=== PATIENT | female | born 1985 | race Caucasian/White ===

== ENCOUNTER 2017-01-13 19:48 | Inpatient (IN) | payer OTHER ==
[~2017-01-13] VITALS: Ht 160 cm; Wt 87.6 kg
[~2017-01-13 19:48] MED LIST: HYDR-3498 PO; IBUP-1542 PO; NITR-58 PO; ONDA4TAB8 PO; PHEN-538 PO
[2017-01-13 20:12] VITALS: BP 125/81; PULSE 89; RESP 18
[2017-01-13] MEDS ORDERED: FERR134T PO (20:16)
[2017-01-13] MEDS ORDERED: PRENAT PO (20:16)
[2017-01-13 20:38] LABS: ADD UMIC YES; UR ASCORBIC ACID NEGATIVE (NEGATIVE); UR BACTERIA FEW /HPF (NONE SEEN); UR BILIRUBIN (Dip) NEGATIVE (NEGATIVE); UR BLOOD (Dip) NEGATIVE (NEGATIVE); UR CLARITY SLIGHTLY CLOUDY (CLEAR); UR COLOR YELLOW (YELLOW); UR GLUCOSE (Dip) NEGATIVE (NEGATIVE); UR KETONES (Dip) NEGATIVE (NEGATIVE); UR LEUKOCYTE ESTERASE (Dip) 2+ Leu/ul (NEGATIVE); UR NITRITE (Dip) NEGATIVE (NEGATIVE); UR RBC 1 /HPF (0-5); UR SQUAMOUS EPITHELIAL CELL MODERATE /HPF (FEW); UR TOTAL PROTEIN (Dip) NEGATIVE (NEGATIVE); UR UROBILINOGEN (Dip) NEGATIVE (NEGATIVE)
[2017-01-13] MEDS ORDERED: BUTORPHANOL 2 MG INJ IV PRN (21:00)
[2017-01-13] MEDS ORDERED: OXYTOCIN 30 UNITS/LR 500 ML IV PRN (21:00)
[2017-01-13] MEDS ORDERED: CARBOPROST 250 MCG INJ IM PRN (21:00)
[2017-01-13] MEDS ORDERED: METHYLERGONOVINE 0.2 MG INJ IM PRN (21:00)
[2017-01-13] MEDS ORDERED: MISOPROSTOL 200 MCG TAB PR PRN (21:00)
[2017-01-13] MEDS ORDERED: IBUPROFEN 600 MG TAB PO PRN (21:00)
[2017-01-13] MEDS ORDERED: LIDOCAINE 1% (MPF) 30 ML INJ INJ PRN (21:00)
[2017-01-13] MEDS ORDERED: OXYTOCIN 30 UNITS/LR 500 ML IV SCH ×2 (21:00)
[2017-01-13] MEDS: LACTATED RINGER'S 1,000 ML IV SCH (21:25)
--- NOTE | 2017-01-13 21:59 | TRIAGE ---
OB Triage Datetime Report Generated by CPN: 01/13/2017 21:59 Datetime: 01/13/2017 21:44 Assessment Type: Admission Assessment Vaginal Bleeding: None Maternal Assessment Level of Consciousness: Fully Conscious DTR's/Clonus: DTRs 2+; No Clonus Headache: Unilateral; Frontal Blurred Vision: No Respiratory Effort: Unlabored; Regular Rhythm; Equal Expansion Breath Sounds, Left: Clear and Equal Breath Sounds, Right: Clear and Equal Nausea/Vomiting: Denies RUQ Epigastric Pain: Denies Facial Edema: None Fall Risk Assessment History of Falling: (0) No Secondary Diagnosis: (0) No Ambulatory Aid: (0) Bedrest/Nurse Assist Gait: (0) Normal/Bedrest/Immobile Mental Status: (0) Oriented to Own Ability Pain Assessment Pain Scale: 7 Pain Presence: Intermittent Pain Type: Contraction Pain Location: Abdomen; Back Datetime: 01/13/2017 20:48 Stage of : OB Triage Datetime: 01/13/2017 20:44 Stage of : OB Triage Labor Evaluation Frequency: 3-8 Monitor Mode: External Duration (sec)2399: 60-100 Quality: Moderate Pattern: Normal: <= 5 Contractions in 10 Minutes Resting Tone [place]: Relaxed Heart Rate FHR Baseline Rate: 140 Monitor Mode: External US FHR Baseline Changes: No Baseline Change Variability: Moderate 6-25 bpm Accelerations: 15X15 Decelerations: None Category: Category I Vaginal Exam Dilatation (cms): 2.0 Effacement (%): 60 Station: 0 Exam By: Dr Qureshi Membrane Status: Intact Vaginal Bleeding: None Cervix, Consistency: Soft Cervix, Position: Posterior Presentation 'A': Cephalic Datetime: 01/13/2017 20:03 Time of Arrival: 01/13/2017 19:45 EGA: 39.2 Arrived By: Wheelchair Arrived From: Home Chief Complaint: w/ c/o ucs and sharp pelvic pain, mild nausea, PRICE and cough Movement: Present Contractions: Regular Time Contractions Began: 01/13/2017 18:39 Contractions: Q5-7 Rupture of Membranes: Denies Vaginal Bleeding: None Vaginal Discharge: Denies Recent Sexual Intercouse: Denies Abdominal Trauma: Not Applicable Patient Complaints: Contractions; Headache; Nausea Time Provider Notified: 01/13/2017 20:48 Provider Notified: Dr Burris Initial Plan: EFM, SVE Datetime: 01/13/2017 19:54 Stage of : OB Triage Maternal Assessment Level of Consciousness: Fully Conscious DTR's/Clonus: DTRs 2+; No Clonus Headache: Generalized Blurred Vision: No Respiratory Effort: Unlabored Nausea/Vomiting: Present RUQ Epigastric Pain: Denies Facial Edema: None Labor Evaluation Frequency: placed Monitor Mode: External Resting Tone [place]: Relaxed Monitor Mode: External US Comments: FHT 145 Pain Assessment Pain Scale: 7 Pain Presence: Intermittent Pain Type: Contraction; Stabbing Pain Location: Abdomen; Perineum
[2017-01-13 22:01] LABS: ADD SCAN DIFF NO
[2017-01-13 22:04] LABS: BASOPHILS % 0.3 % (0.0-2.0); EOSINOPHILS # 0.1 10^3/ul (0.0-0.5); EOSINOPHILS % 0.6 % (0.0-7.0); HEMATOCRIT 32.9 % (37.0-47.0); HEMOGLOBIN 11.3 g/dl (12.0-16.0); LYMPHOCYTES # 2.6 10^3/ul (0.8-2.9); LYMPHOCYTES % 27.5 % (15.0-51.0); MEAN CORPUSCULAR HEMOGLOBIN 29.2 pg (29.0-33.0); MEAN CORPUSCULAR HGB CONC 34.3 g/dl (32.0-37.0); MEAN PLATELET VOLUME 10.8 fl (7.4-10.4); MONOCYTE # 0.6 10^3/ul (0.3-0.9); MONOCYTES % 6.6 % (0.0-11.0); NEUTROPHIL # 6.2 10^3/ul (1.6-7.5); NEUTROPHILS % 64.7 % (39.0-77.0); PLATELET COUNT 245 10^3/UL (140-415); RED BLOOD COUNT 3.87 10^6/ul (4.20-5.40); RED CELL DISTRIBUTION WIDTH 13.7 % (11.5-14.5); WHITE BLOOD COUNT 9.6 10^3/ul (4.8-10.8)
[2017-01-13 22:22] LABS: INR 0.98
[2017-01-13 22:23] LABS: PARTIAL THROMBOPLASTIN TIME 25.6 Sec (25.0-35.0)
[2017-01-13 22:27] LABS: ALANINE AMINOTRANSFERASE 25 IU/L (13-69); ALBUMIN 3.4 g/dl (3.3-4.9); ALBUMIN/GLOBULIN RATIO 0.97; ALKALINE PHOSPHATASE 180 IU/L (42-121); ANION GAP 18 (8-16); ASPARTATE AMINO TRANSFERASE 20 IU/L (15-46); BILIRUBIN,INDIRECT 0.1 mg/dl (0-1.1); BILIRUBIN,TOTAL 0.1 mg/dl (0.2-1.3); BLOOD UREA NITROGEN 5 mg/dl (7-20); CALCIUM 9.4 mg/dl (8.4-10.2); CARBON DIOXIDE 19 mmol/L (21-31); CHLORIDE 106 mmol/L (97-110); CREATININE 0.55 mg/dl (0.44-1.00); GLUCOSE 84 mg/dl (70-220); POTASSIUM 3.9 mmol/L (3.5-5.1); SODIUM 139 mmol/L (135-144); TOTAL PROTEIN 6.9 g/dl (6.1-8.1)
[2017-01-13] MEDS ORDERED: LACTATED RINGER'S 1,000 ML IV PRN (23:00)
[2017-01-13] MEDS: OXYTOCIN 30 UNITS/LR 500 ML IV SCH (23:10)
[2017-01-14] MEDS: LACTATED RINGER'S 1,000 ML IV SCH ×3 (00:12→11:22)
[2017-01-14] MEDS ORDERED: AL HYDROX/MG HYDROX/SIMETH 30 ML CUP PO ONE (01:00)
--- NOTE | 2017-01-14 05:27 | HP ---
Date/Time of Note Date/Time of Note DATE: 01/14/17 TIME: 05:19 OB - History Hx of Present Free Text/Dictation Late Entry Note- Patient seen on 01/13/17: 31 Year-old with SIUP at 39 2/7 weeks presents with a chief complaint of ucs. She has been receiving her care with Dr. Burris. She states good movement. She denies nausea, vomiting, shortness of breath, chest pain, and abdominal pain between contractions, headache, visual changes, vaginal bleeding or LOF. Chief Complaint: ucs Estimated Due Date: Jan 18, 2017 : 3 Para: 1 Spontaneous : 1 Therapeutic : 0 Care: Good Care Ultrasounds: Normal mid trimester US Obstetrical Complications: None Medical Complications: None Past Family/Social History * Past Medical, Surgical, Family and Obstetric Histories reviewed from chart. GBS Status: Negative OB Admission Exam Vital Signs Vital Signs Vital Signs Date Time Temp Pulse Resp B/P Pulse Ox O2 Delivery O2 Flow Rate FiO2 01/13/17 20:12 97.4 89 18 125/81 Room Air Physical Exam HEENT: WNL Heart: Rhythm Normal Lungs: Clear Abdomen: WNL Extremities: Normal Cervical Dilatation: 2cm Effacement: Other (60%) Station: -2 Membranes: Intact Heart Rate: 140's Accelerations: Accelerations Present Decelerations: No Decelerations Varibility: Moderate Contractions on Admission: < 5 Minutes Apart Intensity: Firm Last 72 hours Lab Results CBC & BMP 01/13/17 21:20 Liver Function Test 01/13/17 21:20 Alanine Aminotransferase (ALT/SGPT) 25 Albumin 3.4 Alkaline Phosphatase 180 H Aspartate Amino Transf (AST/SGOT) 20 Direct Bilirubin 0.00 Total Protein 6.9 OB Assessment/Plan Other plan: 31 Year-old with SIUP at 39 2/7 weeks in labor. - FHR: No sign of metabolic acidosis- Category I - Continious EFM, toco - CBC, blood type and screen - Analgesia options with R/B/A discussed in detail with patient - Epidural per patient request - GBS negative - Obtain PNL from office on 01/14/17 - Please see the orders Admission, procedures, expectations, risks and possible complications have been discussed in detail with the patient. Risk of vaginal delivery including but not limited to bleeding, infection, cervical laceration, placental retention, injury to fetus, blood transfusion, blood transfusion related infection, risk of anesthesia, adhesion, cervical laceration, episiotomy/laceration, possible delivery with risk of bleeding, infection, injury to other organs ( bowel, bladder, ureter, vessels, nerves), injury to fetus, blood transfusion, blood transfusion related infection, risk of anesthesia, scar and hernia formation, needs for future , removal of uterus or any other indicated surgery discussed with the patient. She expressed understanding and repeats the risks. All of her questions were answered; all appropriate consents will be signed. PHYSICIAN'S VERIFICATION OF INFORMED CONSENT: The patient was counseled regarding the procedure, its indications, risks, potential complications and alternatives and any questions were answered. Consent was obtained. PLANNED PROCEDURE/TREATMENT: Vaginal delivery with possible vacuum/forceps delivery episiotomy, repair of laceration possible delivery PHYSICIAN'S VERIFICATION OF INFORMED CONSENT FOR BLOOD TRANSFUSION: There is a reasonable possibility that blood transfusion will be necessary as a result of the patient's procedure. I have discussed the following with the patient/patient's legal small business representative: An explanation of the benefits and risks of the transfusion of blood or blood products and the possible alternatives. Al questions have been answered to the patient's/patients legal representatives satisfaction. INFORMED CONSENT: The patient has been informed of: - The nature of the proposed care, treatment, services, medic- Potential benefits, risks or side effects, including potential problems related to recuperation. - The likelihood of achieving care treatment and service goals. - Reasonable alternatives to the proposed care, treatment and service. - The relevant risks, benefits and side effects related to alternatives, including the possible results of not receiving care, treatment and services. - When indicated, any limitations on the confidentiality of information learned from or about the patient. - If appropriate, the risks, benefits and alternatives of the drugs to be used for sedation/analgesia including moderate sedation. JOSE ANGEL RENTERIA Jan 14, 2017 05:27
[2017-01-14] MEDS ORDERED: FENTAnyl 2MCG/ML-ROPIV 0.2% 100 ML ONE (07:19)
--- NOTE | 2017-01-14 07:32 | HP ---
Date/Time of Note Date/Time of Note DATE: 01/14/17 TIME: 07:28 OB - History Hx of Present Free Text/Dictation 31 YO with IUP at 39 weeks who reported to L&D with headache and borderline BP and early labor. she is augmented with Pitocin. PIH labs are normal. Care: Good Care Ultrasounds: Normal mid trimester US Obstetrical Complications: None Medical Complications: None Past Family/Social History * Past Medical, Surgical, Family and Obstetric Histories reviewed from chart. OB Admission Exam Vital Signs Vital Signs Vital Signs Date Time Temp Pulse Resp B/P Pulse Ox O2 Delivery O2 Flow Rate FiO2 01/13/17 20:12 97.4 89 18 125/81 Room Air Physical Exam HEENT: WNL Heart: Rhythm Normal Lungs: Clear, Equal Abdomen: WNL Extremities: Normal Reflexes: Normal Cervical Dilatation: 4cm Effacement: 75% Membranes: Ruptured Last 72 hours Lab Results CBC & BMP 01/13/17 21:20 Liver Function Test 01/13/17 21:20 Alanine Aminotransferase (ALT/SGPT) 25 Albumin 3.4 Alkaline Phosphatase 180 H Aspartate Amino Transf (AST/SGOT) 20 Direct Bilirubin 0.00 Total Protein 6.9 OB Assessment/Plan Other Assessment: Labor EFW is 8 Lb Induction Method: other (AROM: Clear. Pitocin. ) ZACKARY BARAHONA MD Jan 14, 2017 07:32
[2017-01-14] MEDS: ACETAMINOPHEN 500 MG TAB PO PRN ×2 (07:55→14:57)
[2017-01-14] MEDS ORDERED: DIPHENHYDRAMINE 50 MG INJ IV PRN ×2 (10:30→14:30)
[2017-01-14] MEDS ORDERED: FENTAnyl 2MCG/ML-ROPIV 0.2% 100 ML BAG EPI SCH (10:30)
[2017-01-14] MEDS ORDERED: ONDANSETRON 4 MG INJ IV PRN ×2 (10:30→14:30)
[2017-01-14] MEDS ORDERED: NALOXONE (0.4 MG/ML) INJ IV PRN (10:30)
[2017-01-14] MEDS ORDERED: HYDROmorphONE 1 MG/ML SYG IV PRN ×2 (10:30)
[2017-01-14] MEDS ORDERED: LACTATED RINGER'S 1,000 ML IV* SCH (14:10)
--- NOTE | 2017-01-14 14:14 | LDN ---
Date/Time of Note Date/Time of Note DATE: 01/14/17 TIME: 14:11 Delivery Summary s/p of viable male with 1st degree vaginal laceration repaired with 2-0 chromic in normal fashion. EBL 300. placenta delivered intact and spontaneously. Placenta Delivered: Spontaneously Meconium: none Episiotomy: No Estimated blood loss: 300 Sponge & Needle done & correct: Yes Any foreign bodies felt in the: No Problems: Delivery Information Sex Sex: male Apgars 1 Minute: 8 5 Minute: 9 Suctioning Nose & mouth suctioned at cuca: No Delee suction performed: No Umbilical Cord Umbilical cord with: 3 Vessels Cord presentations: no nuchal cord Cord Blood was obtained: Yes Mother & Baby Disposition Disposition Mom & Baby to Maternity; Good: Yes ZACKARY BARAHONA MD Jan 14, 2017 14:14
[2017-01-14] MEDS ORDERED: ONDANSETRON 4 MG TAB PO PRN (14:30)
[2017-01-14] MEDS ORDERED: WITCH HAZEL/GLYCERIN PAD PR PRN (14:30)
[2017-01-14] MEDS ORDERED: CARBOPROST 250 MCG INJ IM PRN (14:30)
[2017-01-14] MEDS ORDERED: BENZOCAINE 20% 56 ML SPRAY TOP PRN (14:30)
[2017-01-14] MEDS ORDERED: SENNA/DOCUSATE NA (8.6MG/50MG) TAB PO PRN (14:30)
[2017-01-14] MEDS ORDERED: DIBUCAINE 1% 30 GM OINT PR PRN (14:30)
[2017-01-14] MEDS ORDERED: MAGNESIUM HYDROXIDE 30ML CUP PO PRN (14:30)
[2017-01-14] MEDS ORDERED: ACETAMINOPHEN/CODEINE #3 TAB PO PRN (14:30)
[2017-01-14] MEDS ORDERED: MISOPROSTOL 200 MCG TAB PR PRN (14:30)
[2017-01-14] MEDS ORDERED: DIPHENHYDRAMINE 25 MG CAP PO PRN (14:30)
[2017-01-14] MEDS ORDERED: OXYTOCIN 30 UNITS/LR 500 ML IV PRN (14:30)
[2017-01-14] MEDS ORDERED: LANOLIN 7 GM TUBE TOP PRN (14:30)
[2017-01-14] MEDS ORDERED: NA PHOSPHATE/BIPHOS 133 ML ENEMA PR PRN (14:30)
[2017-01-14 16:00] VITALS: BP 144/69; PULSE 96; RESP 18
[2017-01-14 16:30] VITALS: BP 140/70; PULSE 88; RESP 17
[2017-01-14] MEDS: ACETAMINOPHEN/CODEINE #3 TAB PO PRN (16:43)
[2017-01-14] MEDS: IBUPROFEN 600 MG TAB PO SCH (17:54)
[2017-01-14] MEDS: OXYTOCIN 30 UNITS/LR 500 ML IV SCH (18:20)
[2017-01-14 19:35] VITALS: BP 132/81; PULSE 80; RESP 20
[2017-01-14] MEDS: SENNA/DOCUSATE NA (8.6MG/50MG) TAB PO SCH (20:40)
[2017-01-15] MEDS: IBUPROFEN 600 MG TAB PO SCH ×5 (00:01→23:54)
[2017-01-15 03:55] VITALS: BP 120/66; PULSE 87; RESP 18
[2017-01-15 08:20] VITALS: BP 109/65; PULSE 84; RESP 17
[2017-01-15 08:31] LABS: ADD SCAN DIFF NO
[2017-01-15 08:36] LABS: BASOPHILS % 0.2 % (0.0-2.0); EOSINOPHILS # 0.1 10^3/ul (0.0-0.5); EOSINOPHILS % 0.7 % (0.0-7.0); HEMOGLOBIN 8.5 g/dl (12.0-16.0); LYMPHOCYTES # 2.4 10^3/ul (0.8-2.9); LYMPHOCYTES % 19.1 % (15.0-51.0); MEAN CORPUSCULAR HEMOGLOBIN 28.1 pg (29.0-33.0); MEAN CORPUSCULAR HGB CONC 32.7 g/dl (32.0-37.0); MEAN CORPUSCULAR VOLUME 85.8 fl (82.0-101.0); MEAN PLATELET VOLUME 10.5 fl (7.4-10.4); MONOCYTE # 0.7 10^3/ul (0.3-0.9); MONOCYTES % 5.4 % (0.0-11.0); NEUTROPHIL # 9.3 10^3/ul (1.6-7.5); NEUTROPHILS % 74.1 % (39.0-77.0); PLATELET COUNT 179 10^3/UL (140-415); RED BLOOD COUNT 3.03 10^6/ul (4.20-5.40); WHITE BLOOD COUNT 12.5 10^3/ul (4.8-10.8)
[2017-01-15] MEDS: SENNA/DOCUSATE NA (8.6MG/50MG) TAB PO SCH ×2 (09:00→21:29)
[2017-01-15] MEDS: ACETAMINOPHEN/CODEINE #3 TAB PO PRN (10:55)
[2017-01-15 12:00] VITALS: BP 114/55; PULSE 80; RESP 17
[2017-01-15 16:00] VITALS: BP 118/67; PULSE 88; RESP 17
[2017-01-15 20:00] VITALS: BP 116/79; PULSE 82; RESP 20
--- NOTE | 2017-01-16 00:02 | PN ---
Date/Time of Note Date/Time of Note DATE: 01/15/17 TIME: 23:59 OB Subjective Subjective Subjective Denies any complaint except low back pain that she had a prior to and during . Denies any numbness or tingling in her legs. Denies any trouble with ambulation. Breast-feeding. Urinated. Vaginal bleeding in the amount of menses. Denies any fever or chills. Denies any dizziness or lightheadedness, shortness of breath or chest pain. OB Objective Objective Objective Hematology - 72 Hrs Test 01/13/17 21:20 01/15/17 08:07 White Blood Count 9.610^3/ul (4.8-10.8) # 12.510^3/ul (4.8-10.8) #H Red Blood Count 3.8710^6/ul (4.20-5.40) L 3.0310^6/ul (4.20-5.40) #L Hemoglobin 11.3g/dl (12.0-16.0) L 8.5g/dl (12.0-16.0) #L Hematocrit 32.9% (37.0-47.0) L 26.0% (37.0-47.0) #L Mean Corpuscular Volume 85.0fl (82.0-101.0) 85.8fl (82.0-101.0) Mean Corpuscular Hemoglobin 29.2pg (29.0-33.0) 28.1pg (29.0-33.0) L Mean Corpuscular Hemoglobin Concent 34.3g/dl (32.0-37.0) 32.7g/dl (32.0-37.0) Red Cell Distribution Width 13.7% (11.5-14.5) 14.0% (11.5-14.5) Platelet Count 58889^3/UL (140-415) 09354^3/UL (140-415) # Mean Platelet Volume 10.8fl (7.4-10.4) #H 10.5fl (7.4-10.4) H Neutrophils % 64.7% (39.0-77.0) 74.1% (39.0-77.0) Lymphocytes % 27.5% (15.0-51.0) 19.1% (15.0-51.0) Monocytes % 6.6% (0.0-11.0) 5.4% (0.0-11.0) Eosinophils % 0.6% (0.0-7.0) 0.7% (0.0-7.0) Basophils % 0.3% (0.0-2.0) 0.2% (0.0-2.0) Nucleated Red Blood Cells % 0.0/100WBC (0.0-0.0) 0.0/100WBC (0.0-0.0) Neutrophils # 6.210^3/ul (1.6-7.5) 9.310^3/ul (1.6-7.5) H Lymphocytes # 2.610^3/ul (0.8-2.9) 2.410^3/ul (0.8-2.9) Monocytes # 0.610^3/ul (0.3-0.9) 0.710^3/ul (0.3-0.9) Eosinophils # 0.110^3/ul (0.0-0.5) 0.110^3/ul (0.0-0.5) Basophils # 0.010^3/ul (0.0-0.1) 0.010^3/ul (0.0-0.1) Nucleated Red Blood Cells # 0.010^3/ul (0.0-0.0) 0.010^3/ul (0.0-0.0) Chemistry Test 01/13/17 21:20 Sodium Level 139mmol/L (135-144) Potassium Level 3.9mmol/L (3.5-5.1) Chloride Level 106mmol/L (97-110) Carbon Dioxide Level 19mmol/L (21-31) L Anion Gap 18 (8-16) H Blood Urea Nitrogen 5mg/dl (7-20) L Creatinine 0.55mg/dl (0.44-1.00) Glucose Level 84mg/dl (70-220) Uric Acid 4.9mg/dl (3.1-7.9) Calcium Level 9.4mg/dl (8.4-10.2) Total Bilirubin 0.1mg/dl (0.2-1.3) L Direct Bilirubin 0.00mg/dl (0.00-0.20) Indirect Bilirubin 0.1mg/dl (0-1.1) Aspartate Amino Transf (AST/SGOT) 20IU/L (15-46) Alanine Aminotransferase (ALT/SGPT) 25IU/L (13-69) Alkaline Phosphatase 180IU/L (42-121) H Total Protein 6.9g/dl (6.1-8.1) Albumin 3.4g/dl (3.3-4.9) Globulin 3.50g/dl (1.3-3.2) H Albumin/Globulin Ratio 0.97 General appearance: Alert and oriented 4. Does not appear to be in any acute distress. Abdomen: Soft, fundal height consistent with status and palpable at the level of umbilicus. No CVA tenderness. No focal and local tenderness in the lower back. No fundal tenderness. Extremities: No calf tenderness, no click, negative Homans sign Breast: No evidence of mastitis or fissure OB Assessment/Plan Other Assessment: day #1 Status post Anemia, secondary to status Asymptomatic Low back pain, musculoskeletal UA suggestive for UTI. Asymptomatic. urine culture sent. Consider treatment. Plan: Iron twice a day with a stool softener Continue routine care NSAIDs and heating pack for low back pain, discussed with the patient Possible anticipate discharge home tomorrow Urine culture sent Will start antibiotics Follow up with prelimanry culture ELIZABETH AHMADI MD Jan 16, 2017 00:02
[2017-01-16] MEDS: ACETAMINOPHEN/CODEINE #3 TAB PO PRN ×2 (02:55→08:57)
[2017-01-16 04:01] VITALS: BP 117/89; PULSE 89; RESP 20
[2017-01-16] MEDS: IBUPROFEN 600 MG TAB PO SCH ×2 (05:31→11:58)
[2017-01-16 08:15] VITALS: BP 108/61; PULSE 80; RESP 18
[2017-01-16] MEDS: SENNA/DOCUSATE NA (8.6MG/50MG) TAB PO SCH (08:56)
[2017-01-16] MEDS ORDERED: VARICELLA VACCINE LIVE/PF 1,350 UNIT/0.5 ML ML SC* ONE (09:00)
[2017-01-16] MEDS ORDERED: CEPHALEXIN 500 MG CAP PO SCH (09:00)
[2017-01-16] MEDS ORDERED: FERROUS FUMARATE (SR) TAB PO SCH (09:00)
[2017-01-16] MEDS ORDERED: MEASLES,MUMPS,RUBELLA VACCINE INJ SC* ONE (09:00)
[2017-01-16] MEDS ORDERED: DOCUSATE SODIUM 100 MG CAP PO SCH (09:00)
[2017-01-16] MEDS ORDERED: DIPHTH/TET/ACEL PERTUSS (ADULT) 0.5 ML VIAL IM* ONE (09:00)
--- NOTE | 2017-01-16 11:53 | DS ---
Date/Time of Note Date/Time of Note DATE: 01/16/17 TIME: 11:49 Obstetrical Discharge Record Final Diagnosis Final Diagnosis: Term delivered Vaginal Delivery Obstetrical Delivery: Spontaneous Condition on Discharge Physical Assessment Voiding: Yes Bowel Movement: Yes Breast: Soft, non-tender Fundus: Firm Abdomen and Incision: Post day 2 Doing Well Afebrile Ambulatory Chest Clear Breasts are soft , Nipples are intact Abdomen is soft Fundus is firm Moderate amount of lochia Perineum is healing well Current Medications Medications (Trade) Dose Ordered Sig/Greg Route PRN Reason Start Time Stop Time Status Last Admin Dose Admin Lactated Ringer's 1,000 ml @ 125 mls/hr Q8H IV 01/13/17 20:55 01/15/17 00:33 DC 01/14/17 11:22 Oxytocin/Lactated Ringer's 500 ml @ 0 mls/hr TITRATE IV 01/13/17 21:00 01/14/17 18:20 Butorphanol Tartrate (Stadol) 2 mg Q2H PRN IV PAIN 01/13/17 21:00 Lidocaine 30 ml 30 ml ONCE PRN INJ EPISIOTOMY/TEARING 01/13/17 21:00 Oxytocin/Lactated Ringer's 500 ml @ 125 mls/hr ONCE -MAY REPEAT X1 IV 01/13/17 21:00 01/14/17 14:00 Oxytocin/Lactated Ringer's 500 ml @ 125 mls/hr ONCE IV 01/13/17 21:00 01/15/17 00:33 DC 01/14/17 14:27 Ibuprofen 600 mg 600 mg ONCE PRN PO Mild Pain (Pain Score 1-3) 01/13/17 21:00 Lactated Ringer's 1,000 ml @ 2,000 mls/hr Q30M PRN IV PRE-EPIDURAL BOLUS 01/13/17 23:00 01/15/17 00:33 DC 01/14/17 07:52 Oxytocin/Lactated Ringer's 500 ml @ 0 mls/hr ONCE PRN IV For Hemorrhage Management 01/13/17 21:00 Methylergonovine Maleate (Methergine) 0.2 mg ONCE PRN IM VAGINAL BLEEDING 01/13/17 21:00 Carboprost Tromethamine (Hemabate) 250 mcg ONCE PRN IM VAGINAL BLEEDING 01/13/17 21:00 Misoprostol (Cytotec) 1,000 mcg ONCE PRN NE VAGINAL BLEEDING 01/13/17 21:00 Al Hydrox/Mg Hydrox/Simethicone (Mag-Al Plus) 30 ml ONCE ONCE PO 01/14/17 01:00 01/14/17 01:12 DC 01/14/17 01:15 Acetaminophen 1000 mg 1,000 mg Q6H PRN PO PAIN AND OR ELEVATED TEMP 01/14/17 07:30 01/14/17 14:57 Fentanyl/ Ropivacaine 100 ml @ STK-MED ONCE .ROUTE 01/14/17 07:19 01/14/17 07:20 DC Naloxone HCl (Narcan) 0.1 mg Q2M PRN IV FOR RESP RATE 8 OR LESS 01/14/17 10:30 01/15/17 10:29 DC Hydromorphone HCl (Dilaudid) 0.2 mg Q3H PRN IV PAIN LEVEL 1-5 01/14/17 10:30 01/15/17 10:29 DC Hydromorphone HCl (Dilaudid) 0.4 mg Q3H PRN IV PAIN LEVEL 6-10 01/14/17 10:30 01/15/17 10:29 DC Diphenhydramine HCl (Benadryl) 25 mg Q6H PRN IV ITCHING 01/14/17 10:30 01/15/17 10:29 DC Ondansetron HCl (Zofran Inj) 4 mg Q6H PRN IV NAUSEA AND/OR VOMITING 01/14/17 10:30 01/15/17 10:29 DC Fentanyl/ Ropivacaine 100 ml 100 ml EPIDURAL INFUSION EPI 01/14/17 10:30 Lactated Ringer's (Lr) 1,000 ml @ 125 mls/hr Q8H IV* 01/14/17 14:10 01/15/17 00:33 DC Ibuprofen (Motrin) 600 mg Q6 PO 01/14/17 18:00 01/16/17 05:31 Acetaminophen/ Codeine Phosphate (Tylenol No.3) 1 tab Q4H PRN PO PAIN LEVEL 1-5 01/14/17 14:30 Acetaminophen/ Codeine Phosphate (Tylenol No.3) 2 tab Q4H PRN PO PAIN LEVEL 6-10 01/14/17 14:30 01/16/17 08:57 Ondansetron HCl (Zofran Inj) 4 mg Q6H PRN IV NAUSEA AND/OR VOMITING 01/14/17 14:30 Ondansetron HCl (Zofran Tab) 4 mg Q6H PRN PO NAUSEA AND/OR VOMITING 01/14/17 14:30 Diphenhydramine HCl (Benadryl) 25 mg Q6H PRN PO PRURITUS 01/14/17 14:30 Diphenhydramine HCl (Benadryl) 25 mg Q6H PRN IV PRURITUS 01/14/17 14:30 Senna/Docusate Sodium (Senokot-S) 1 tab BID PO 01/14/17 21:00 01/16/17 08:56 Senna/Docusate Sodium (Senokot-S) 1 tab BID PRN PO CONSTIPATION 01/14/17 14:30 Magnesium Hydroxide (Milk Of Mag) 30 ml Q12H PRN PO CONSTIPATION 01/14/17 14:30 Sodium Biphosphate/ Sodium Phosphate (Fleet Enema) 133 ml DAILY PRN NE CONSTIPATION 01/14/17 14:30 Witch Regla/ Glycerin (Tucks Pads) 1 pad BEDSIDE MEDICATION PRN NE HEMORRHOID/EPISIOTMY PAIN 01/14/17 14:30 01/14/17 16:45 Benzocaine (Dermoplast [place] [facility]) 1 spray BEDSIDE MEDICATION PRN TOP HEMORRHOID/EPISIOTMY PAIN 01/14/17 14:30 01/14/17 16:44 Dibucaine (Nupercainal) 1 applic BEDSIDE MEDICATION PRN NE HEMORRHOID/EPISIOTMY PAIN 01/14/17 14:30 Lanolin (Vxt-R-Ffvacz) 1 applic BEDSIDE MEDICATION PRN TOP BEDSIDE FOR MEGAN TO NIPPLES 01/14/17 14:30 Measles/Mumps/ Rubella Vaccine Live (Mmr Ii Vaccine) 0.5 ml ONCE ONCE SC* 01/16/17 09:00 01/16/17 09:01 DC Diphtheria/ Tetanus/Acell Pertussis (Adacel) 0.5 ml ONCE ONCE IM* 01/16/17 09:00 01/16/17 09:01 DC Varicella Virus Vaccine Live 1350 unit 1,350 unit ONCE ONCE SC* 01/16/17 09:00 01/16/17 09:01 DC Oxytocin/Lactated Ringer's 500 ml @ 0 mls/hr ONCE PRN IV For Hemorrhage Management 01/14/17 14:30 Carboprost Tromethamine (Hemabate) 250 mcg ONCE PRN IM VAGINAL BLEEDING 01/14/17 14:30 Misoprostol (Cytotec) 1,000 mcg ONCE PRN NE VAGINAL BLEEDING 01/14/17 14:30 Cephalexin (Keflex) 500 mg QID PO 01/16/17 09:00 01/16/17 08:56 Docusate Sodium/ Ferrous Fumarate (Bryce-Sequels) 1 tab BID PO 01/16/17 09:00 01/16/17 08:56 Docusate Sodium (Colace) 100 mg BID PO 01/16/17 09:00 01/16/17 08:56 No calf tenderness No ankle edema Episiotomy: Healing well Patient Condition: Good MELISSA REVELES MD Jan 16, 2017 11:52
== END 2017-01-16 13:50 | disposition home or self-care (01) | DRG 775 ==
LOC: OBT 19:48 → L-D 19:52 → OBT 20:48 → PP1 01-14 15:50
PROVIDERS: ADMIT Specialist; ATTEND Specialist
PROC: 10E0XZZ Delivery of Products of Conception, External Approach (ICD-10-PCS; principal; 2017-01-14)
DX: O80 Encounter for full-term uncomplicated delivery (principal); Z37.0 Single live birth; Z3A.39 39 weeks gestation of pregnancy
CPT/HCPCS: 36415; 62319; 80053; 81001; 84560; 85025; 85610; 85730; 86592; 86900; 86901; 87086; 87340; 90715; 90716; 96360; G0463; J2590; J3010; J7120

== ENCOUNTER 2017-10-15 11:34 | Emergency (ER) | END 2017-10-15 15:50 | disposition home or self-care (01) ==